=== PATIENT | female | born 1985 | race Hispanic/Latino ===

== ENCOUNTER 2024-12-16 18:26 | Emergency (ER) | payer BC, SELFPAY ==
[2024-12-16 18:29] VITALS: BP 135/90
[2024-12-16 19:10] LABS: Hematocrit 38.7 % (37.0-47.0); Hemoglobin 12.5 g/dL (12.0-16.0); Mean Corp Hgb Conc. 32.3 g/dL (33.0-37.0); Mean Corpuscular Volume 81.6 fL (81.0-99.0); Platelet Count 229 10^3/uL (130-400); Red Cell Dist. Width 13.5 % (11.5-14.5)
[2024-12-16 19:26] LABS: HCG, Serum Qualitative Screen Negative
[2024-12-16 19:27] LABS: Nucleated Red Blood Cells % 0 %
[2024-12-16 19:30] LABS: ALT (SGPT) 19 U/L (0-35); AST (SGOT) 14 U/L (14-36); Albumin 4.3 g/dl (3.5-5.0); Alkaline Phosphatase 49 U/L (38-126); Carbon Dioxide 27 mmol/L (22-30); Chloride 104 mmol/L (98-107); Glucose 152 mg/dl (70-99); Potassium 4.6 mmol/L (3.5-5.1); Sodium 138 mmol/L (135-145); Total Protein 7.6 g/dl (6.3-8.2); eGFR > 60.00
[2024-12-16 19:37] LABS: Troponin I < 0.012 ng/ml
[2024-12-16 19:39] LABS: Blood Urea Nitrogen 12 mg/dl (7-17); Calcium 9.5 mg/dl (8.4-10.2)
[2024-12-16 19:53] VITALS: BP 109/78
[2024-12-16 20:00] VITALS: BP 102/77
[2024-12-16 20:05] VITALS: BMI 30.9
--- NOTE | 2024-12-16 20:21 | ED.GENMED ---
History of Present Illness
General
Chief Complaint: Breathing Problem
Source: patient
Exam Limitations: none
Time Seen by Provider: 12/16/24 20:08
Nursing documentation reviewed up to this point in time: agreed with
History of Present Illness
History of Present Illness:
39-year-old female presents with chest and neck pain shortness of breath similar to her prior PEs 2006 after a she developed a PE treated with oral anticoagulants apparently failed those now she is treated with twice daily Lovenox followed
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
Past History
Past History
ED Past Medical History: Other (Gene mutation PE)
ED Past Surgical History:
Social History
Tobacco: Non-smoker
Alcohol: None
Drug: None
Personal:
Living: with family
Employment: Employed
Review of Systems
Review of Systems
All Other Systems: Not applicable
Constitutional: Denies fever
Respiratory: Reports trouble breathing
Cardiac: Reports chest pain; Denies palpitations or syncope
ABD/GI: Reports no symptoms
: Reports no symptoms
Musculoskeletal: Reports muscle pain
Skin: Reports no symptoms
Neurological: Reports no symptoms
Phy Exam
Physical Exam
Physical Exam:
Physical Exam
General: no apparent distress, not acutely ill
Neck: No jaundice
Heart: s1/s2 regular rate and rhythm, no murmur. equal radial pulses.
Lungs: no acute respiratory distress. clear bilaterally
Abdomen: Not tender
Neuro: alert and oriented. no focal neurological deficits
Skin: no rash
Psychiatric: well kept. interactive and cooperative
Extremities: no edema. no calf tenderness.
Scores
Heart Score for Chest Pain Patients
STEMI patient?: No
History: Slightly or Non-Suspicious
ECG: Normal
Age: </= 45 years
Risk Factors: No Risk Factors
Troponin: </= Normal Limit
Heart Score for Chest Pain Patients: 0
Heart Score Risk: 2.5% MACE over next 6 weeks
Course
Orders/Labs/Results
Orders:
Orders
12/16/24 18:43
EKG [Electrocardiogram (*1)] Urgent
Reason for Study: Chest Pain
CT Chest PE Study Urgent
Comment:
Reason For Exam: SOB, CP
12/16/24 18:44
EKG- Treatment ONCE
Test Result ONCE
12/16/24 18:51
Complete Blood Count/With Diff Urgent
Comprehensive Metabolic Panel Urgent
HCG, Serum Qualitative Screen Urgent
Troponin I Urgent
Abnormal Lab Results
12/16/24
18:51
MCH 26.4 L pg
(27.0-31.0)
MCHC 32.3 L g/dL
(33.0-37.0)
Absolute Lymphs (auto) 3.7 H 10^3/uL
(1.2-3.4)
Neutrophils % 29.4 L %
(42.2-75.2)
Lymphocytes % 62.2 H %
(20.5-51.1)
Glucose 152 H mg/dl
(70-99)
12/16/24 18:51
12/16/24 18:51
Vital Signs
Initial and Last Documented VS:
Initial Vital Signs
Temp Pulse Resp BP Pulse Ox
97.9 F 91 18 135/90 100
12/16/24 18:29 12/16/24 18:29 12/16/24 18:29 12/16/24 18:29 12/16/24 18:29
Last Documented Vital Signs
Temp Pulse Resp BP Pulse Ox
97.9 F 84 11 102/77 97
12/16/24 18:29 12/16/24 20:06 12/16/24 20:00 12/16/24 20:00 12/16/24 20:22
MDM/Problems Addressed
Differential Diagnosis Includes:
PE pleurisy pneumothorax pneumonia doubt ACS or heart failure perhaps muscle strain
MDM/Problems Addressed:
Chest pain shortness of
Chronic conditions affecting care:
PE hypercoagulable
Acute Exacerbation and/or Progression of Chronic Illness:
PE hypercoagulable state
*Radiology
Radiology exam reviewed: radiology read reviewed
*Pulse Oximetry
SaO2: 97
Oxygen Mode of Delivery: Room air
Patient hypoxic: no
*EKG
Interpreted by ED Provider?: Yes
Interpretation: normal
Comparison EKG: no comparison EKG present
Heart Rate: 78
Rate: normal
Ischemia: no ischemia
*[employer] Interpretation
Rate: normal
Interpretation: normal
Heart Rate: 78
Rhythm: sinus
*Critical Care Note
Total Time (30-74mins, 75-104mins- exclusive of procedures): Not Applicable
Update Note
Update Note:
9:[address] report noted troponin noted EKG noted
ED Attending Note
-
Portions of this chart may have been created with voice recognition software.� Occasional wrong word or��sound alike� substitutions may have occurred due to the inherent limitations of voice recognition software.
Discharge Plan
Departure
Referrals:
DEVORAH WINTER MD [Family Provider, Internal Medicine]
Interventions
Interventions:
*Risk Screen - Suicide Last Done: 12/16/24 18:29
*General Assessment Last Done: 12/16/24 18:29
*Neglect/Abuse Screening Last Done: 12/16/24 20:07
*ED- Fall Risk Assessment Last Done: 12/16/24 20:07
*ED COVID-19 Vaccine History Last Done: 12/16/24 18:29
ED- Cardiac Assessment Last Done: 12/16/24 20:07
ED- Pulmonary Assessment Last Done: 12/16/24 20:07
Discharge Date and Time
Print Language: TRINIDADIAN
[2024-12-16 21:00] VITALS: BP 108/75
== END 2024-12-16 21:35 | disposition home or self-care (01) ==
LOC: EMR 18:26
PROVIDERS: Emergency Medicine; EMERGENCY PHYSICIAN Emergency Medicine; FAMILY PHYSICIAN General Practice
DX: R07.9 Chest pain, unspecified (principal); M54.2 Cervicalgia; R06.02 Shortness of breath; Z86.711 Personal history of pulmonary embolism; Z79.01 Long term (current) use of anticoagulants
CPT/HCPCS: 99284; 71275; 80053; 84484; 84703; 85025; 93005; Q9967